=== PATIENT | male | born 1990 | race Caucasian/White ===

== ENCOUNTER 2022-11-27 15:46 | Emergency (ER) | payer SELFPAY ==
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
[2022-11-27 15:54] VITALS: BP 155/93; PULSE 85; RESP 22; TEMP 37.5; O2SAT 98
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
[2022-11-27] MEDS: Normal Saline 1,000 ML 1000 ML IV (16:01)
[2022-11-27] MEDS: fentaNYL 100 MCG/2 ML VIAL (16:01)
[2022-11-27] MEDS: Normal Saline - Diluent 50 ML VIAL IJ (16:16)
[2022-11-27 17:16] LABS: Abs Immature Grans 0.07 10^3/uL (0.0-0.06); Absolute Eosinophil Count 0.36 10^3/uL (0.0-0.7); Absolute Monocyte Count 1.06 10^3/uL (0.1-0.8); Basophils % 0.7; Eosinophils % 2.5; HCT 41.4 % (40.0-50.0); HGB 14.7 g/dL (13.5-17.5); Immature Grans % 0.5; MCH 31.7 pg (27.0-33.0); MCHC 35.5 % (32.0-36.0); MCV 89 fL (80-95); MPV 8.7 fL (8.0-11.0); Monocytes % 7.3; Platelet Count 372 10^3/uL (130-400); RBC 4.64 10^6/uL (4.36-5.78); RDW 13.2 % (11.8-14.1); RDW-SD 43.1 fL; WBC 14.51 10^3/uL (4.4-10.8)
[2022-11-27 17:23] LABS: Absolute Neutrophil Count 11.32 10^3/uL (1.2-6.7)
[2022-11-27] MEDS: Ketorolac 15 MG/ML VIAL IVP (17:24)
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
--- NOTE | 2022-11-27 17:26 | DI.VRAD_ITS ---
PROCEDURE INFORMATION: Exam: XR Left Hand Exam date and time: 11/27/2022 4:46 PM Age: 32 years old Clinical indication: Mass or lump and swelling; Hand; Left TECHNIQUE: Imaging protocol: Radiologic exam of the left hand. Views: 3 or more views. COMPARISON: No relevant prior studies available. FINDINGS: Bones/joints: Spiral oblique fracture of the distal half of the long finger metacarpal. Soft tissues: Soft tissue swelling over the dorsum of the hand IMPRESSION: Spiral oblique fracture of the distal half of the long finger metacarpal. Dictated and Authenticated by: Sebastian Hermosillo MD. Ordering:NAZANIN Mcclain MD
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
[2022-11-27 17:27] LABS: Anion Gap 7.1 mmol/L (3-11); BUN 12 mg/dL (7-18); CO2 25.9 mmol/L (21.0-32.0); Calcium 8.5 mg/dL (8.5-10.1); Chloride 105 mmol/L (98-107); Estimated GFR 101.92 (mL/min/1.73m2); Glucose 134 mg/dL (74-106); Lipase 22 U/L (16-77); Potassium 3.5 mmol/L (3.5-5.1); Sodium 138 mmol/L (136-145)
[2022-11-27 17:28] LABS: ETHANOL BLOOD < 3.0 mg/dL (<10)
[2022-11-27] MEDS: Acetaminophen 500 MG TAB 1000 MG PO (17:33)
[2022-11-27 19:06] VITALS: BP 128/73; PULSE 80; RESP 16; TEMP 37.2; O2SAT 98
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
--- NOTE | 2022-12-01 17:02 | NUR.NOTE ---
Nursing Note: PT called and wanted to verify that his prescription was sent to the pharmacy as he went to pick it up and they do not have any record of it. Parquetry Layer spoke with provider and prescription will be resent.
== END 2022-11-27 19:08 | disposition home or self-care (01) ==
LOC: ER 19:51
PROVIDERS: Emergency Provider Emergency Medicine
DX: S62.301A Unspecified fracture of second metacarpal bone, left hand, initial encounter for closed fracture (principal); S62.303A Unspecified fracture of third metacarpal bone, left hand, initial encounter for closed fracture; V89.2XXA Person injured in unspecified motor-vehicle accident, traffic, initial encounter
CPT/HCPCS: 29125; 74177; 76604; 76705; 76857; 80048; 83690; 86850; 86900; 86901; 96361; 96374; 99285; 70450; 71260; 72125; 73090; 73110; 73130; 80320; 85025; 99284; J1885; J3010